=== PATIENT | female | born 1930 | race Caucasian/White ===

== ENCOUNTER → 2017-11-18 | Outpatient (CLI) | payer MEDICARE, OTHER ==
[~2017-11-18] MED LIST: ACET325 PO; Azopt10 ML RIGHTEYE; CEPH500 PO; DOCU100 PO; FAMO20 PO; MECL12.5 PO; PANT40 PO; SODBIC650 PO; THERAPEUTIC-M1 EAC3 PO
[2017-11-18 17:45] LABS: Albumin, Blood 3.9 g/dL (3.4-5.0); Anion Gap 9 mmol/L (6-16); Blood Urea Nitrogen 19 mg/dL (8-24); Bun/Creatinine Ratio 12.8 (12.0-20.0); CO2, Blood 26 mmol/L (21-32); Calcium, Blood 9.3 mg/dL (8.5-10.1); Chloride, Blood 102 mmol/L (98-108); Creatinine, Blood 1.48 mg/dL (0.40-1.00); Glomerular Filtration Rate 35 (60-); Glucose, Blood 92 mg/dL (70-99); Phosphorus, Blood 3.9 mg/dL (2.5-4.9); Potassium, Blood 4.3 mmol/L (3.5-5.5); Sodium, Blood 137 mmol/L (136-145)
== END | disposition home or self-care (01) ==
LOC: LAB 14:00 → LAB SHORT 14:00
PROVIDERS: Internal Medicine Nephrology
DX: N18.3 Chronic kidney disease, stage 3 (moderate) (principal); D63.1 Anemia in chronic kidney disease; R73.09 Other abnormal glucose
CPT/HCPCS: 80069; 83036; 85018